=== PATIENT | male | born 1995 | race Caucasian/White ===

== ENCOUNTER 2019-10-22 21:55 | Emergency (ER) | payer SELFPAY ==
[2019-10-22 22:40] LABS: Basophils % 1.1 % (0-1.3); Hematocrit 47.4 % (39.6-49.0); Lymphocytes % 27.2 % (15.3-44.8); MPV 9.2 fL (7.6-11.3); RBC Red Blood Cell Count 5.14 M/uL (4.33-5.43)
[2019-10-22] MEDS ORDERED: DICYCLOMINE HCL 10 MG CAP ONE (22:59)
[2019-10-22 23:06] LABS: ALT/SGPT 24 U/L (12-78); AST/SGOT 14 U/L (15-37); Albumin 3.7 g/dL (3.4-5.0); Alkaline Phosphatase 84 U/L (45-117); BUN Blood Urea Nitrogen 9 mg/dL (7-18); Bicarbonate 30 mmol/L (21-32); Bilirubin Direct < 0.1 mg/dL (0-0.2); Bilirubin Total 0.2 mg/dL (0.2-1.0); Glucose Level 91 mg/dL (74-106); Lipase 191 U/L (73-393); Potassium 3.8 mmol/L (3.5-5.1); Protein, Total 7.8 g/dL (6.4-8.2); Sodium Level 142 mmol/L (136-145)
--- NOTE | 2019-10-22 23:21 | ER ---
Nurse's Notes [facility] Name: Moi Guillen Age: 24 yrs Sex: Male : 1995 Arrival Date: 10/22/2019 Time: 21:59 Bed 16 Private MD: Diagnosis: Abdominal tenderness Presentation: 10/21 22:05 Chief complaint: Patient states: i have LLQ pain x 2 days. denies urinary sx, no n/v. mg2 Coronavirus screen: Client denies travel out of the [place] in the last 14 days. At this time, the client does not indicate any symptoms associated with coronavirus-19. The client reports previous COVID testing was negative. 2 weeks ago. Ebola Screen: No symptoms or risks identified at this time. Initial Sepsis Screen: Does the patient meet any 2 criteria? No. Patient's initial sepsis screen is negative. Does the patient have a suspected source of infection? No. Patient's initial sepsis screen is negative. Risk Assessment: Do you want to hurt yourself or someone else?. Onset of symptoms was October 21, 2019. Care prior to arrival: [facility] 2129. 22:05 Method Of Arrival: Ambulatory mg2 22:05 Acuity: ROBERTO CARLOS 3 mg2 Historical: - Allergies: 22:08 No Known Allergies; mg2 - Home Meds: 22:08 None [Active]; mg2 - PMHx: 22:08 None; mg2 - PSHx: 22:08 plastic lip sx; mg2 - Immunization history:: Flu vaccine status is unknown. - Social history:: Smoking status: Patient reports the use of cigarette tobacco products, Patient/guardian denies using alcohol, street drugs, IV drugs. Screenin:42 Abuse screen: Denies threats or abuse. Denies injuries from another. Nutritional rv screening: No deficits noted. Tuberculosis screening: No symptoms or risk factors identified. Fall Risk None identified. Assessment: 22:30 General: Appears comfortable, Behavior is calm, cooperative. rv 22:30 Pain: Complains of pain in left lower quadrant. Pain: Pain does not radiate. Pain rv currently is 4 out of 10 on a pain scale. Neuro: Level of Consciousness is awake, alert, obeys commands, Oriented to person, place, time, situation. Cardiovascular: Patient's skin is warm and dry. Respiratory: Airway is patent. GI: Bowel sounds present X 4 quads. Abd is soft and non tender X 4 quads. Patient currently denies constipation, diarrhea, nausea, vomiting. Derm: Skin is intact. Vital Signs: 22:05 Weight 77.11 kg; Height 6 ft. 2 in. (187.96 cm); Pain 5/10; mg2 22:30 BP 181 / 75; Pulse 63; Resp 18; Pulse Ox 100% on R/A; ea 23:27 BP 141 / 72; Pulse 68; Resp 17; Temp 98; Pulse Ox 99% on R/A; rv 22:05 Body Mass Index 21.83 (77.11 kg, 187.96 cm) mg2 ED Course: 21:59 Patient arrived in ED. am2 22:04 Michael Engel, BOO is Primary Nurse. rv 22:05 Bertram Tucker MD is Attending Physician. tw4 22:07 Triage completed. mg2 22:08 Arm band placed on. mg2 22:09 Patient has correct armband on for positive identification. mg2 22:32 Inserted saline lock: 20 gauge in left antecubital area, using aseptic technique. ea 23:27 No provider procedures requiring assistance completed. IV discontinued, intact, rv bleeding controlled, No redness/swelling at site. Pressure dressing applied. Administered Medications: 22:50 Drug: Bentyl 20 mg Route: PO; rv 23:28 Follow up: Response: No adverse reaction; Pain is decreased rv Outcome: 23:21 Discharge ordered by . tw4 23:27 Discharged to home ambulatory. rv 23:27 Condition: good 23:27 Discharge instructions given to patient, Instructed on discharge instructions, follow up and referral plans. medication usage, Demonstrated understanding of instructions, follow-up care, medications, Prescriptions given X 1. 23:28 Patient left the ED. rv Signatures: Melissa Calderon am2 Nicole Celaya RN Bertram Hankins ea, MD MD tw4 Demarco Salmeron RN [place] [facility] [place] Michael Engel RN RN rv
--- NOTE | 2019-10-22 23:21 | EDPHYS ---
Physician Documentation [facility] Name: Moi Guillen Age: 24 yrs Sex: Male : 1995 Arrival Date: 10/22/2019 Time: 21:59 Bed 16 Private MD: ED Physician Bertram Tucker HPI: 10/21 22:45 This 24 yrs old Male presents to ER via Ambulatory with complaints of tw4 Abdominal Pain. 22:45 The patient presents with abdominal pain. Onset: The symptoms/episode began/occurred tw4 yesterday. The symptoms do not radiate. Associated signs and symptoms: none. The symptoms are described as crampy. Modifying factors: The symptoms are alleviated by nothing, the symptoms are aggravated by nothing. Severity of pain: At its worst the pain was moderate in the emergency department the pain has resolved and did so while in waiting room, has improved. The patient has not experienced similar symptoms in the past. The patient has not recently seen a physician. Historical: - Allergies: 22:08 No Known Allergies; mg2 - Home Meds: 22:08 None [Active]; mg2 - PMHx: 22:08 None; mg2 - PSHx: 22:08 plastic lip sx; mg2 - Immunization history:: Flu vaccine status is unknown. - Social history:: Smoking status: Patient reports the use of cigarette tobacco products, Patient/guardian denies using alcohol, street drugs, IV drugs. ROS: 22:45 Constitutional: Negative for fever, chills, and weight loss, Eyes: Negative for injury, tw4 pain, redness, and discharge, Cardiovascular: Negative for chest pain, palpitations, and edema, Respiratory: Negative for shortness of breath, cough, wheezing, and pleuritic chest pain, Back: Negative for injury and pain, MS/Extremity: Negative for injury and deformity, Skin: Negative for injury, rash, and discoloration, Neuro: Negative for headache, weakness, numbness, tingling, and seizure. 22:45 Abdomen/GI: Positive for abdominal pain, Negative for nausea and vomiting, nausea, vomiting, and diarrhea, nausea, vomiting. Exam: 22:45 Constitutional: This is a well developed, well nourished patient who is awake, alert, tw4 and in no acute distress. Head/Face: Normocephalic, atraumatic. Chest/axilla: Normal chest wall appearance and motion. Nontender with no deformity. No lesions are appreciated. Cardiovascular: Regular rate and rhythm with a normal S1 and S2. No gallops, murmurs, or rubs. Normal PMI, no JVD. No pulse deficits. Respiratory: Lungs have equal breath sounds bilaterally, clear to auscultation and percussion. No rales, rhonchi or wheezes noted. No increased work of breathing, no retractions or nasal flaring. Abdomen/GI: Soft, non-tender, with normal bowel sounds. No distension or tympany. No guarding or rebound. No evidence of tenderness throughout. Back: No spinal tenderness. No costovertebral tenderness. Full range of motion. MS/ Extremity: Pulses equal, no cyanosis. Neurovascular intact. Full, normal range of motion. Neuro: Awake and alert, GCS 15, oriented to person, place, time, and situation. Cranial nerves II-XII grossly intact. Motor strength 5/5 in all extremities. Sensory grossly intact. Cerebellar exam normal. Normal gait. Psych: Awake, alert, with orientation to person, place and time. Behavior, mood, and affect are within normal limits. Vital Signs: 22:05 Weight 77.11 kg; Height 6 ft. 2 in. (187.96 cm); Pain 5/10; mg2 22:30 BP 181 / 75; Pulse 63; Resp 18; Pulse Ox 100% on R/A; ea 23:27 BP 141 / 72; Pulse 68; Resp 17; Temp 98; Pulse Ox 99% on R/A; rv 22:05 Body Mass Index 21.83 (77.11 kg, 187.96 cm) mg2 MDM: 22:05 Patient medically screened. tw4 22:45 Differential diagnosis: diverticulitis, gastritis, Hepatitis, Peritonitis, Prostatitis. tw4 Data reviewed: vital signs, nurses notes. Data interpreted: Pulse oximetry: Interpretation: normal. Special discussion: I discussed with the patient/guardian in detail that at this point there is no indication for admission to the hospital. It is understood, however, that if the symptoms persist or worsen the patient needs to return immediately for re-evaluation. 10/21 22:05 Order name: Basic Metabolic Panel; Complete Time: 23:19 tw4 10/21 23:19 Interpretation: Within normal limits. tw4 10/21 22:05 Order name: CBC with Diff; Complete Time: 23:19 tw4 10/21 23:19 Interpretation: Normal except: WBC 11.1. tw4 10/21 22:05 Order name: Hepatic Function; Complete Time: 23:19 tw4 10/21 23:19 Interpretation: Normal except: AST 14; GLOB 4.1; A/G 0.9. tw4 10/21 22:05 Order name: Lipase; Complete Time: 23:19 tw4 10/21 23:19 Interpretation: Within normal limits: LIP 191. tw4 10/21 22:05 Order name: IV Saline Lock; Complete Time: 22:40 tw4 10/21 22:05 Order name: Labs collected and sent; Complete Time: 22:40 tw4 Administered Medications: 22:50 Drug: Bentyl 20 mg Route: PO; rv 23:28 Follow up: Response: No adverse reaction; Pain is decreased rv Disposition: 10/22/19 23:21 Discharged to Home. Impression: Abdominal tenderness. - Condition is Stable. - Discharge Instructions: Abdominal Pain, Adult. - Prescriptions for Bentyl 20 mg Oral Tablet - take 1 tablet by ORAL route every 6 hours As needed; 20 tablet. - Medication Reconciliation Form, Thank You Letter, Antibiotic Education, Prescription Opioid Use form. - Follow up: Private Physician; When: Upon discharge from the Emergency Department; Reason: Recheck today's complaints, Continuance of care, Re-evaluation by your physician. - Problem is new. - Symptoms have improved. Signatures: Dispatcher [employer] EDOK Bertram Tucker MD MD tw4 Demarco Salmeron RN RN [facility] [place] Michael Engel RN RN rv Corrections: (The following items were deleted from the chart) 23:28 23:21 10/22/2019 23:21 Discharged to Home. Impression: Abdominal tenderness. Condition rv is Stable. Forms are Medication Reconciliation Form, Thank You Letter, Antibiotic Education, Prescription Opioid Use. Follow up: Private Physician; When: Upon discharge from the Emergency Department; Reason: Recheck today's complaints, Continuance of care, Re-evaluation by your physician. Problem is new. Symptoms have improved. tw4
[2019-10-23 18:14] VITALS: BP 141/72; TEMP 98; O2SAT 99
== END 2019-10-22 23:28 | disposition home or self-care (01) ==
LOC: ER 21:55
DX: R10.819 Abdominal tenderness, unspecified site (principal); F17.210 Nicotine dependence, cigarettes, uncomplicated
CPT/HCPCS: 36415; 80048; 80076; 83690; 85025; 99283